=== PATIENT | female | born 2005 | race American Indian/Alaskan Native ===

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

== ENCOUNTER 2024-03-04 07:41 | Emergency (ER) | payer OTHER ==
[~2024-03-04] VITALS: Ht 160 cm; Wt 81.7 kg
[2024-03-04] MEDS ORDERED: NS 1,000 ML IV SCH (08:00)
[2024-03-04 08:56] LABS: BASOPHILS ABSOLUTE AUTO 0.03 K/mm3 (0.00-0.23); BASOPHILS PERCENT AUTO 1 % (0-2); EOSINOPHILS ABSOLUTE AUTO 0.09 K/mm3 (0.00-0.68); EOSINOPHILS PERCENT AUTO 1 % (0-6); Hematocrit 31.9 % (33.0-51.0); Hemoglobin 10.9 g/dL (11.5-16.0); IMMATURE GRAN ABSOLUTE AUTO 0.03 K/mm3 (0.00-0.10); IMMATURE GRAN PERCENT AUTO 1 % (0-1); LYMPHOCYTES PERCENT AUTO 19 % (21-46); MONOCYTES ABSOLUTE AUTO 0.38 K/mm3 (0.16-1.47); MONOCYTES PERCENT AUTO 6 % (4-13); Mean Corpuscular HGB 28.8 pg (26.0-34.0); Mean Corpuscular HGB Conc 34.2 g/dL (31.5-36.5); Mean Corpuscular Volume 84 fL (80-100); Mean Platelet Volume 9.5 fL (9.1-12.4); NEUTROPHILS ABSOLUTE AUTO 4.56 K/mm3 (1.96-9.15); NEUTROPHILS PERCENT AUTO 73 % (41-73); Platelet Count 308 K/mm3 (150-400); RDW Coefficient Variation 13.9 % (11.7-14.2); RDW Standard Deviation 42.5 fL (35.1-46.3); Red Blood Cell Count 3.79 M/mm3 (3.80-5.20); White Blood Cell Count 6.29 K/mm3 (4.00-11.30)
[2024-03-04 08:59] LABS: Influenza A, PCR NEGATIVE (NEGATIVE); Influenza B, PCR NEGATIVE (NEGATIVE); Resp Syncytial Virus, PCR NEGATIVE (NEGATIVE); SARS-Cov-2 (COVID-19) PCR, MMC NEGATIVE (NEGATIVE)
[2024-03-04 09:18] LABS: Bun/Creatinine Ratio 25.2 (12.0-20.0); Calcium, Blood 9.4 mg/dL (8.5-10.1); Creatinine, Blood 0.56 mg/dL (0.40-1.00); Magnesium, Blood 2.2 mg/dL (1.6-2.4); Potassium, Blood 3.9 mmol/L (3.5-5.5)
[2024-03-04] MEDS ORDERED: Azithromycin 250 MG Tab PO ONE (09:35)
[2024-03-04] MEDS ORDERED: Amoxicillin/Clavulanate K 875 MG Tab PO ONE (09:35)
[2024-03-04] MEDS ORDERED: AZIT250 PO ×2 (09:39→11:14)
[2024-03-04] MEDS ORDERED: AMOCLA875 PO ×2 (09:39→11:14)
[2024-03-04] MEDS ORDERED: Acetaminophen 160MG / 5ML 10.15 UDC PO ONE (09:55)
[2024-03-04] MEDS ORDERED: Azithromycin 200 MG/5 ML SUSP 5ML UDC PO ONE (09:55)
[2024-03-04] MEDS ORDERED: Amoxicillin/Clavulanate K 600 MG/5 ML 5ML UDC PO ONE (09:55)
[2024-03-04 11:00] VITALS: BP 120/88
== END 2024-03-04 11:14 | disposition home or self-care (01) ==
LOC: ER 07:41
PROVIDERS: Emergency Medicine
DX: R56.9 Unspecified convulsions (principal); Z88.8 Allergy status to other drugs, medicaments and biological substances; Z88.6 Allergy status to analgesic agent; Z79.899 Other long term (current) drug therapy
CPT/HCPCS: 0241U; 71045; 80048; 83735; 85025; 99284-25; A9270; J7030

== ENCOUNTER 2024-05-22 04:21 | Emergency (ER) | payer OTHER ==
[~2024-05-22] VITALS: Ht 157.5 cm; Wt 88.5 kg
[~2024-05-22 04:21] MED LIST changes: +AZIT250 PO
[2024-05-22 04:29] VITALS: BP 147/95
[2024-05-22 05:32] LABS: Influenza B, PCR NEGATIVE (NEGATIVE); Resp Syncytial Virus, PCR NEGATIVE (NEGATIVE); SARS-Cov-2 (COVID-19) PCR, MMC NEGATIVE (NEGATIVE)
[2024-05-22 05:34] LABS: Influenza A, PCR POSITIVE (NEGATIVE)
[2024-05-22] MEDS ORDERED: Oseltamivir Phosphate 75 MG Cap PO ONE (06:30)
[2024-05-22] MEDS ORDERED: Tamiflu75 MG PO (06:35)
== END 2024-05-22 06:44 | disposition home or self-care (01) ==
LOC: ER 04:21
PROVIDERS: Emergency Medicine
DX: G40.909 Epilepsy, unspecified, not intractable, without status epilepticus (principal); J10.1 Influenza due to other identified influenza virus with other respiratory manifestations; F84.0 Autistic disorder; Z88.8 Allergy status to other drugs, medicaments and biological substances; Z88.6 Allergy status to analgesic agent; Z91.018 Allergy to other foods; Z79.899 Other long term (current) drug therapy
CPT/HCPCS: 0241U; 71045; 93005; 93010; 99284-25; A9270

== ENCOUNTER 2024-05-22 20:39 | Emergency (ER) | payer OTHER ==
[~2024-05-22] VITALS: Ht 157.5 cm; Wt 88.5 kg
[~2024-05-22 20:39] MED LIST changes: +Tamiflu75 MG PO
[2024-05-23] MEDS ORDERED: NS 1,000 ML IV SCH (00:15)
[2024-05-23] MEDS ORDERED: Acetaminophen 160MG / 5ML 10.15 UDC PO ONE (00:15)
[2024-05-23 00:21] LABS: BASOPHILS ABSOLUTE AUTO 0.06 K/mm3 (0.00-0.23); BASOPHILS PERCENT AUTO 1 % (0-2); EOSINOPHILS ABSOLUTE AUTO 0.01 K/mm3 (0.00-0.68); EOSINOPHILS PERCENT AUTO 0 % (0-6); Hematocrit 37.6 % (33.0-51.0); Hemoglobin 12.4 g/dL (11.5-16.0); IMMATURE GRAN ABSOLUTE AUTO 0.05 K/mm3 (0.00-0.10); IMMATURE GRAN PERCENT AUTO 1 % (0-1); LYMPHOCYTES ABSOLUTE AUTO 0.65 K/mm3 (0.84-5.20); LYMPHOCYTES PERCENT AUTO 7 % (21-46); MONOCYTES ABSOLUTE AUTO 0.68 K/mm3 (0.16-1.47); MONOCYTES PERCENT AUTO 7 % (4-13); Mean Corpuscular HGB 27.3 pg (26.0-34.0); Mean Corpuscular Volume 83 fL (80-100); Mean Platelet Volume 9.9 fL (9.1-12.4); NEUTROPHILS PERCENT AUTO 85 % (41-73); Platelet Count 265 K/mm3 (150-400); RDW Coefficient Variation 12.8 % (11.7-14.2); RDW Standard Deviation 38.6 fL (35.1-46.3); Red Blood Cell Count 4.54 M/mm3 (3.80-5.20); White Blood Cell Count 9.35 K/mm3 (4.00-11.30)
[2024-05-23 00:42] LABS: Albumin, Blood 3.4 g/dL (3.4-5.0); Albumin/Globulin Ratio 0.7 (0.8-1.8); Bilirubin, Total 0.2 mg/dL (0.1-1.0); Bun/Creatinine Ratio 22.3 (12.0-20.0); Calcium, Blood 9.1 mg/dL (8.5-10.1); Creatinine, Blood 0.54 mg/dL (0.40-1.00); Globulin, Blood 4.6 g/dL (2.2-4.0); Potassium, Blood 3.8 mmol/L (3.5-5.5); Thyroid Stimulating Hormone 0.415 uIU/mL (0.360-4.800)
[2024-05-23 02:37] VITALS: BP 143/94
== END 2024-05-23 02:55 | disposition home or self-care (01) ==
LOC: ER 20:39
PROVIDERS: Emergency Medicine
DX: G40.909 Epilepsy, unspecified, not intractable, without status epilepticus (principal); J10.1 Influenza due to other identified influenza virus with other respiratory manifestations; Z79.899 Other long term (current) drug therapy; Z88.6 Allergy status to analgesic agent; Z88.8 Allergy status to other drugs, medicaments and biological substances; Z91.048 Other nonmedicinal substance allergy status
CPT/HCPCS: 80053; 83605; 84443; 85025; 99284-25; A9270; J7030